=== PATIENT | male | born 1950 | race Caucasian/White ===

== ENCOUNTER 2020-05-22 19:40 | Emergency (ER) | payer BC, MEDICARE ==
[~2020-05-22] VITALS: Ht 172.7 cm; Wt 125.1 kg
[~2020-05-22 19:40] MED LIST: LISI5TAB7 PO; SIMV20TA19 PO
[2020-05-22] MEDS ORDERED: ONDANSETRON 2MG/ML, 2ML ONE (20:18)
[2020-05-22] MEDS ORDERED: MORPHINE SULFATE 4 MG/ML, 1ML ONE ×2 (20:19→22:31)
[2020-05-22] MEDS: MORPHINE SULFATE 4 MG/ML, 1ML IVPush PRN ×2 (20:23→23:56)
[2020-05-22] MEDS ORDERED: ONDANSETRON 2MG/ML, 2ML IVPush ONE (20:30)
[2020-05-22] MEDS ORDERED: DIPHENHYDRAMINE 50 MG/ML, 1ML ONE (20:44)
--- NOTE | 2020-05-22 20:44 | NUR ---
AFTER MEDICATION ADMINISTERED. PATIENT HAS RED STRIPE ON ARM. PATIENT DENIED HAVING ALLERGY TO MEDICATION PRIOR TO ADMINISTRATION. PATIENT'S ARM IS NOT SWOLLEN, NOT WARM TO TOUCH, NON-PAINFUL. PATIENT DENIES HAVING ANY DIFFICULTY BREATHING OR SWALLOWING/TOLERATING OWN SECRETIONS WELL. PATIENT'S IV FLUSHES WELL WITH BLOOD RETURN. VITAL SIGNS STABLE.
[2020-05-22 20:51] LABS: BASOPHILS # (AUTO) 0.04 x10^3/uL (0-0.1); BASOPHILS % (AUTO) 0 % (0-1); EOSINOPHILS # (AUTO) 0.17 x10^3/uL (0-0.4); EOSINOPHILS % (AUTO) 1 % (1-7); LYMPHOCYTES # (AUTO) 1.98 x10^3/uL (1-3.4); LYMPHOCYTES % (AUTO) 12 % (22-44); MD NO; MEAN CORPUSCULAR HEMOGLOBIN 29.2 pg (27.5-34.5); MEAN CORPUSCULAR HGB CONC 32.8 g/dL (33.2-36.2); MEAN CORPUSCULAR VOLUME 89.2 fL (81-97); MEAN PLATELET VOLUME 7.8 fL (7.4-10.4); MONOCYTES # (AUTO) 1.31 x10^3/uL (0.2-0.8); MONOCYTES % (AUTO) 8 % (2-9); NEUTROPHILS # (AUTO) 13.75 x10^3/uL (1.8-6.8); NEUTROPHILS % (AUTO) 80 % (42-75); PLATELET COUNT 339 x10^3/uL (130-400); RED BLOOD COUNT 5.35 x10^6/uL (4.38-5.82); RED CELL DISTRIBUTION WIDTH 14.6 % (9.4-14.8)
[2020-05-22 20:57] LABS: ALANINE AMINOTRANSFERASE 31 U/L (12-78); ALBUMIN 3.6 g/dL (3.4-5.0); ANION GAP 10 mmol/L (5-15); CALCIUM 9.3 mg/dL (8.5-10.1); CHLORIDE 99 mmol/L (98-107)
[2020-05-22 21:00] LABS: ALKALINE PHOSPHATASE 191 U/L (45-117); BILIRUBIN,TOTAL 0.7 mg/dL (0.2-1.0); CREATININE 2.34 mg/dL (0.7-1.3); TOTAL PROTEIN 8.1 g/dL (6.4-8.2)
[2020-05-22] MEDS ORDERED: DIPHENHYDRAMINE 50 MG/ML, 1ML IVPush ONE (21:00)
[2020-05-22] MEDS ORDERED: SODIUM CHLORIDE 0.9% 1,000ML IVBOLUS ONE (21:30)
[2020-05-22] MEDS ORDERED: OMNIPAQUE 350 MG/ML, 150 ML BOTTLE ONE (21:32)
--- NOTE | 2020-05-22 22:16 | NUR ---
PT RESTING IN BED WITH PT AT PT SIDE, PT A/O X4 AND PT DENIED ANY NEEDS OR PAIN AT THIS TIME. 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 PT MOTHER CALLED LOOKING FOR PT INFO AND PT WAS NOTIFIED OF HIS MOTHERS CALL AND PT STATED "HE WILL CALL HER NOW" PT MOTHER WAS UPSET WHEN PT INFO AND HER MEDICAL QUESTIONS ABOUT PT WAS NOT AWNSERED TO HER LIKING" PT MOTHER WAS ADVISED OF HIPPA LAWS
[2020-05-22] MEDS ORDERED: METRONIDAZOLE PMX 500MG/100ML 100 ML ONE (22:30)
[2020-05-22] MEDS ORDERED: METRONIDAZOLE PMX 500MG/100ML 100 ML IV ONE (22:30)
[2020-05-22] MEDS ORDERED: CIPROFLOXACIN/PMX 400MG/200ML 200 ML IV ONE (22:30)
[2020-05-22] MEDS ORDERED: CIPROFLOXACIN/PMX 400MG/200ML 200 ML ONE (22:30)
--- NOTE | 2020-05-22 22:57 | NUR ---
SPECIAL NEEDS LIBRARIAN CALLED PHARMACY TO SEE IF IV CIPRO AND FLAYGL WHERE COMPATIBLE, LIZANDRO OKED THE 2 MEDS TO BE RUN TOGETHER
[2020-05-23 00:15] VITALS: BP 132/78
== END 2020-05-23 00:17 | disposition home or self-care (01) ==
LOC: ED 21:47
DX: K57.32 Diverticulitis of large intestine without perforation or abscess without bleeding (principal); F17.210 Nicotine dependence, cigarettes, uncomplicated; I10 Essential (primary) hypertension; I48.91 Unspecified atrial fibrillation; E78.00 Pure hypercholesterolemia, unspecified; E11.9 Type 2 diabetes mellitus without complications; E78.5 Hyperlipidemia, unspecified
CPT/HCPCS: 36415; 74177; 80053; 83690; 85025; 96361; 96365; 96368; 96375; 96376; 99285; 99406; J0744; J1200; J2270; J2405; J7030; Q9967